=== PATIENT | male | born 1990 | race Caucasian/White ===

== ENCOUNTER 2020-10-20 19:06 | Emergency (ER) | payer BC ==
[~2020-10-20] VITALS: Ht 170.2 cm; Wt 125.0 kg
--- NOTE | 2020-10-20 19:39 | PHYS DOC ---
Past History Past Medical History: Anxiety, Bipolar, Depression, Hypertension, Schizophrenia Past Surgical History: Tonsillectomy Additional Smoking Information: TOBACCO Alcohol Use: Occasionally General Adult EDM: Chief Complaint: HYPERTENSION HPI: HPI: "My mom and aunt... Made me come in they said my blood pressure is too high.. .."..." I used to be on blood pressure meds but I thought I did not need him.... But I guess I do... The same thing happened with my schizophrenic meds of thought I did not need them but I ended up with prolonged hospitalization at when I was not taking them..... I am on once a month shot of Invega 150 mg...and that is working well.. I much better adjusted.. I am working at the [employer] ...really liked the job Patient is a 30 year old male who presents with above hx and complaints of elevated BP., Patient has known history of hypertension. Had stopped taking his meds because felt he did not need them. Patient has been following blood pressure at home since October 09 of this year. Most show a elevated diastolic blood pressure at or above 90 mg mercury. Patient states that he goes too long with high blood pressure he gets a headache. Patient denies any current sequela of his elevated blood pressure. No history of illicit drug use. No history of trauma. No history of change in other meds. Patient does smoke marijuana and chews tobacco. Patient denies any history of immunosuppression. Has past history of schizoaffective disorder with prolonged hospitalization at . Patient normally follows with [facility] for management of his meds. Patient denies any history of diabetes. There is a family history of diabetes but he has not shown symptoms of diabetes on his last blood work with [facility]. No recent travel. No specific ill contacts. Patient in the past used to follow at the [facility] however now follows at the [facility] here in [place] for his psychiatric issues. Review of Systems: Review of Systems: Constitutional: Denies fever or chills Eyes: Denies change in visual acuity HENT: Denies nasal congestion or sore throat Respiratory: Denies cough or shortness of breath Cardiovascular: Denies chest pain or edema GI: Denies abdominal pain, nausea, vomiting, bloody stools or diarrhea : Denies dysuria Musculoskeletal: Denies back pain or joint pain Integument: Denies rash Neurologic: Denies headache, focal weakness or sensory changes Endocrine: Denies polyuria or polydipsia . Complaints of elevated blood pressure Lymphatic: Denies swollen glands Psychiatric: Denies depression or anxiety Family History: Family History: Hypertension and diabetes Current Medications: Current Meds: See nursing for home meds. [facility] Allergies: Allergies: Allergies Coded Allergies Type Severity Reaction Last Updated Verified haloperidol Allergy Mild "eyes squint" 10/20/20 Yes lurasidone Allergy Mild swollen tongue 10/20/20 Yes Physical Exam: PE: Constitutional: no acute distress, non-toxic appearance. [] HENT: Normocephalic, atraumatic, bilateral external ears normal, oropharynx moist, no oral exudates, nose normal. [] Eyes: PERRLA, EOMI, conjunctiva normal, no discharge. [] Neck: Normal range of motion, no tenderness, supple, no stridor. [] Cardiovascular:Heart rate regular rhythm, no murmur [] Lungs & Thorax: Bilateral breath sounds equal apex with few scattered wheezes auscultation [] Abdomen: Bowel sounds normal, soft, no tenderness, no masses, no pulsatile andre s. Obese Skin: Warm, dry, no erythema, no rash. [] Back: No tenderness, no CVA tenderness. [] Extremities: No tenderness, no cyanosis, no clubbing, ROM intact, no edema. No cording appreciated Neurologic: Alert and oriented X 3, normal motor function, normal sensory function, no focal deficits noted. [] Psychologic: Affect anxious, judgement normal, mood normal. [] Current Patient Data: Vital Signs: Vital Signs Date Time Temp Pulse Resp B/P (MAP) Pulse Ox O2 Delivery O2 Flow Rate FiO2 10/20/20 19:26 98.1 105 18 168/102 (124) 97 Room Air EKG: EKG: [] Radiology/Procedures: Radiology/Procedures: [] Heart Score: Risk Factors: Risk Factors: DM, Current or recent (<one month) smoker, HTN, HLP, family history of CAD, obesity. Risk Scores: Score 0 - 3: 2.5% MACE over next 6 weeks - Discharge Home Score 4 - 6: 20.3% MACE over next 6 weeks - Admit for Clinical Observation Score 7 - 10: 72.7% MACE over next 6 weeks - Early Invasive Strategies Course & Med Decision Making: Course & Med Decision Making Pertinent Labs and Imaging studies reviewed. (See chart for details) Patient to wear clonidine patch 0.2 until follow-up with [facility]. To resume his hypertensive meds. Patient should take his blood pressure cuff in with him to compare to office readings. Patient return if any concerns. Patient encouraged to stop smoking. Patient encouraged to stop chewing tobacco. Patient to keep follow-up appointments at counseling center. Return if any concerns. Impression: 1. Hypertension 2. History of anxiety 3. Hx of schizoaffective disorder 4. History of tobacco, marijuana use. [] Dragon Disclaimer: Dragon Disclaimer: This electronic medical record was generated, in whole or in part, using a voice recognition dictation system. Departure Departure: Referrals: SHENG ZAMORANO (PCP) Dragjulieta Disclaimer This chart was dictated in whole or in part using Voice Recognition software in a busy, high-work load, and often noisy Emergency Department environment. It may contain unintended and wholly unrecognized errors or omissions. MAK BURNS MD Oct 20, 2020 19:39
[2020-10-20] MEDS ORDERED: cloNIDine HCL 0.1 MG TABLET PO ONE (19:45)
[2020-10-20] MEDS ORDERED: cloNIDine TTS-2 1 PATCH PATCH TD ONE (19:45)
[2020-10-20 20:26] VITALS: BP 135/79
[2020-10-20 21:01] LABS: BARBITURATES NEG (NEG); BENZODIAZEPINES NEG (NEG); CANNABINOIDS POS (NEG); COCAINE NEG (NEG); METHADONE NEG (NEG); OPIATES NEG (NEG); PHENCYCLIDINE NEG (NEG)
[2020-10-20 21:03] LABS: AMPHETAMINE/METHAMPHETAMINE NEG (NEG)
[2020-10-20 21:10] LABS: BACTERIA,URINE 0 /HPF (0-FEW); BILIRUBIN,URINE NEG (NEG); CLARITY,URINE CLEAR; COLOR,URINE STRAW; GLUCOSE,URINE NEG (NEG); NITRITE,URINE NEG (NEG); RBC,URINE 0 /HPF (0-2); UROBILINOGEN,URINE 0.2 mg/dL (0.2 mg/dL); WBC,URINE 0 /HPF (0-4)
== END 2020-10-20 21:03 | disposition home or self-care (01) ==
LOC: ER 19:06
DX: I10 Essential (primary) hypertension (principal); F25.9 Schizoaffective disorder, unspecified; F41.9 Anxiety disorder, unspecified; F31.9 Bipolar disorder, unspecified; F17.200 Nicotine dependence, unspecified, uncomplicated; F12.90 Cannabis use, unspecified, uncomplicated; Z88.8 Allergy status to other drugs, medicaments and biological substances
CPT/HCPCS: 36415; 80307; 81001; 99283